=== PATIENT | male | born 1985 ===

== ENCOUNTER 2022-02-01 12:29 | Emergency (ER) | payer MEDICAID, SELFPAY ==
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
[2022-02-01 12:44] VITALS: BP 142/86; PULSE 85; O2SAT 99
[2022-02-01 12:45] VITALS: BP 113/76; PULSE 57; RESP 16; TEMP 36.7; O2SAT 98; BMI 19.5
[2022-02-01 12:48] VITALS: PULSE 58; RESP 16; O2SAT 99
[2022-02-01] MEDS: Ketorolac Tromethamine 15 MG/ML VIAL IM (12:51)
[2022-02-01] MEDS: Cyclobenzaprine HCl 5 MG TABLET PO (12:51)
--- NOTE | 2022-02-01 13:21 | PC.NURSE ---
PT AWAKE, ALERT AND ORIENTED X 3. SKIN WARM AND DRY RESP UNLABORED. DENIES N/V COLLAR REMOVED BY PROVIDER. NEUROS INTACT. NO ACUTE DISTRESS REPORTS SOME IMPROVEMENT SINCE MEDICATION PLAN IS FOR DC HOME, PT AGREEABLE.
== END 2022-02-01 13:23 | disposition home or self-care (01) ==
PROVIDERS: Emergency Provider Emergency Medicine
DX: S13.4XXA Sprain of ligaments of cervical spine, initial encounter (principal); V43.52XA Car driver injured in collision with other type car in traffic accident, initial encounter; F17.200 Nicotine dependence, unspecified, uncomplicated; F12.90 Cannabis use, unspecified, uncomplicated; Y93.89 Activity, other specified; Y92.414 Local residential or business street as the place of occurrence of the external cause; Y99.9 Unspecified external cause status
CPT/HCPCS: 96372; 99284; J1885

== ENCOUNTER 2023-12-13 06:36 | Emergency (ER) | payer MEDICAID, SELFPAY ==
--- NOTE | ~2023-12-13 | XR_ITS ---
EXAMINATION: XR LUMBOSACRAL SPINE CLINICAL INFORMATION: Low back pain COMPARISON: None available. TECHNIQUE: Three views of the lumbosacral spine. FINDINGS: The vertebral bodies and posterior elements are normal. There is straightening of the lumbar spine. The disc spaces are preserved and the vertebral alignment is normal with the exception of some mild narrowing at L4-L5. The paraspinal soft tissues are normal. XR/XR lumbar spine 2-3V IMPRESSION: Mild disc space narrowing L4-L5.
[2023-12-13 06:39] VITALS: BP 101/76; RESP 18; TEMP 36.6; O2SAT 98; BMI 20.5
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
[2023-12-13 10:05] VITALS: BP 148/92; PULSE 55; RESP 16; TEMP 36.2; O2SAT 100
== END 2023-12-13 10:06 | disposition home or self-care (01) ==
PROVIDERS: Emergency Provider Emergency Medicine
DX: S39.012A Strain of muscle, fascia and tendon of lower back, initial encounter (principal); X50.9XXA Other and unspecified overexertion or strenuous movements or postures, initial encounter; R05.9 Cough, unspecified; F17.200 Nicotine dependence, unspecified, uncomplicated; F12.90 Cannabis use, unspecified, uncomplicated; Y93.9 Activity, unspecified; Y92.9 Unspecified place or not applicable; Y99.9 Unspecified external cause status
CPT/HCPCS: 72100; 99282; 99283

== ENCOUNTER 2024-03-17 13:25 | Emergency (ER) | payer MEDICAID, SELFPAY ==
--- NOTE | ~2024-03-17 | XR_ITS ---
EXAMINATION: XR FINGER, RIGHT CLINICAL INFORMATION: Trauma Patient states possible previous dislocation of PIP joint of index finger of the right hand after playing softball. COMPARISON: None available. TECHNIQUE: PA views of right hand and 2 views of the right index finger. FINDINGS: There is mild soft tissue swelling of the right index finger, particularly along the dorsal soft tissues of the PIP joint. The bones are intact. No fracture. Alignment is anatomic. Joint spaces are maintained. XR/XR finger RT min 2V IMPRESSION: No acute bony abnormality. Electronically signed by: Elke Pérez MD 03/17/2024 02:59 PM EDT
[2024-03-17 14:19] VITALS: BP 116/63; PULSE 67; RESP 16; TEMP 37.1; O2SAT 98; BMI 19.7
--- NOTE | 2024-03-17 14:20 | ED.GENADULT ---
HPI - General Adult General Chief complaint: Extremity Problem Stated complaint: Broken finger R hand Time Seen by Provider: 03/17/24 15:06 Source: patient, RN notes reviewed and old records reviewed Mode of arrival: ambulatory Limitations: no limitations History of Present Illness ED Provider: Briana HPI narrative: 38-year-old male presents for evaluation of left 2nd finger pain. Patient was playing softball last night. He reports that the ball hit his right hand. He reports that the distal part of his right 2nd finger was ?pointed upwards at a weird angle. ? The patient states that he fixed this himself by pulling on it He reports increased pain today and bruising to the right 2nd finger The patient is right-hand dominant Related Data Previous Rx's ?Medication ?Instructions ?Recorded cyclobenzaprine 5 mg tablet 5 mg PO TID PRN neck pain 7 days 02/01/22 #21 tabs cyclobenzaprine 10 mg tablet 10 mg PO TID PRN muscle spasm #20 12/13/23 tabs ibuprofen 600 mg tablet 600 mg PO Q6H PRN pain #30 tabs 12/13/23 lidocaine 5 % topical patch 1 patch topical DAILY #30 ea 12/13/23 prednisone 20 mg tablet 40 mg (2 x 20 mg) PO DAILY 5 days 12/13/23 #10 tabs Allergies Allergy/AdvReac Type Severity Reaction Status Date / Time codeine [CODEINE] Allergy Unknown SWELLING,SOB, Verified 03/17/24 14:21 REDNESS Codeine Sulfate Allergy Unknown hives/SOB Verified 03/17/24 14:21 Review of Systems Constitutional: Constitutional: Denies body ache(s), Denies chills and Denies fever(s) Musculoskeletal: Musculoskeletal: Reports arthralgias, Reports joint swelling and Reports limited range of motion PMFSH Past Medical History Medical History No pertinent past medical history Social History Social History Patient Tobacco Use Status: Current everyday Tobacco user Substance Use Type: Marijuana Advance Directives: No Advance Directives Information Provided: No Physical Exam ED Vital Signs: Vital Signs - 24 hr 03/17/24 14:19 Temperature 98.7 F Pulse Rate 67 Respiratory Rate 16 Blood Pressure 116/63 Pulse Oximetry 98 Oxygen Delivery Method Room Air BMI result Body Mass Index 19.7 Const General: healthy appearing, comfortable, no acute distress, alert and awake Nutritional Appearance: well nourished Orientation/consciousness: patient oriented x3 HENMT Head: Yes normocephalic and Yes atraumatic Eyes Eyelids: Yes eyelids normal Conjunctivae: conjunctivae normal Sclerae: sclerae normal Corneas: corneas normal Pupils: Equal, round and reactive pupils present EOM: EOMs intact bilaterally Neck Neck: Yes full ROM Resp Effort & Inspection: normal respiratory effort, able to speak in complete sentences and not labored Skin General skin exam: elasticity normal Neuro General: patient oriented x3 Cranial nerves: Yes Equal, round and reactive pupils present and Yes Bilaterally intact EOM present Cognition (Neuro): normal cognition Extrem Other: Patient has ecchymosis, to the distal right 2nd finger at the D IP joint. This area is tender to palpation. The finger appears to be in the proper anatomic location Course Course Course Narrative: RME, this is a rapid medical exam performed by Haris Warren please refer to primary provider for complete H&P- 38-year-old male presents for evaluation of right 2nd finger injury. The patient was playing softball last night when he got hit by the ball. He reports the finger was at an awkward angle, so he straightened it out himself last night. He complains of pain to the distal finger. Plan for x-ray Medical Decision Making Medical Decision Making [facility] Narrative: 38-year-old male presents for evaluation of an injury to the right 2nd finger. X-ray shows no obvious fracture. It is likely that he dislocated the finger and reduced it himself last night. He has trouble with flexion of the D IP joint. There is a possible tendon injury. The patient placed in a finger splint and will follow up with orthopedics/hand surgery Differential Diagnosis Differential Diagnoses: The differential diagnosis associated with the presentation includes Finger fracture Finger dislocation Tendon injury Contusion Finger sprain Independent Interpretation I performed an independent interpretation of an: Plain X-Ray Interpretation: Agree with Radiology interpretation, no obvious fracture of the right 2nd finger Radiology Impression Discussion of test interpretation with radiology: I have reviewed the radiologist's reading. Radiologist Impression: FINDINGS: There is mild soft tissue swelling of the right index finger, particularly along the dorsal soft tissues of the PIP joint. The bones are intact. No fracture. Alignment is anatomic. Joint spaces are maintained. XR/XR finger RT min 2V IMPRESSION: No acute bony abnormality. Discharge Plan Discharge Clinical Impression: Pain in finger of right hand Patient Disposition: Home, Self-Care Instructions: Finger Dislocation (ED) Additional Instructions: Your x-ray does not show any fractures. It is likely that you dislocated the finger and reduced it yourself It is also possible that you injured a tendon on the palmar side of your finger. Keep the finger splint on. Follow-up with Orthopedics, Dr. Salas at the number provided You may use ibuprofen or Tylenol for pain Prescriptions: No Action cyclobenzaprine 5 mg tablet 5 mg PO TID PRN (Reason: neck pain) 7 Days Qty: 21 0RF cyclobenzaprine 10 mg tablet 10 mg PO TID PRN (Reason: muscle spasm) Qty: 20 0RF prednisone 20 mg tablet 40 mg PO DAILY 5 Days Qty: 10 0RF lidocaine 5 % adhesive patch,medicated 1 patch topical DAILY Qty: 30 0RF Rx Instructions: leave on most painful area for up to 12 hrs ibuprofen 600 mg tablet 600 mg PO Q6H PRN (Reason: pain) Qty: 30 0RF Referrals: Aimee Salas MD [Physician] - (right 2nd finger injury. ? flexor tendon injury) Print Language: Filipino
[2024-03-17 15:41] VITALS: BP 116/63; PULSE 67; RESP 16; TEMP 37.1; O2SAT 98
== END 2024-03-17 15:41 | disposition home or self-care (01) ==
PROVIDERS: Emergency Provider Emergency Medicine
DX: M79.644 Pain in right finger(s) (principal)
CPT/HCPCS: 29130; 73140; 99282; 99283

== ENCOUNTER 2024-03-19 11:28 | Outpatient (AMB) | payer MEDICAID, SELFPAY ==
[2024-03-19 11:30] VITALS: BMI 19.7
--- NOTE | 2024-03-19 11:30 | A.OFFVIS_ITS ---
Vital Signs 03/19/24 11:30 Height 5 ft 9 in Weight 133 lb 9 oz BMI 19.7 Intake Visit Reasons: [employer]- ED f/u right 2nd finger injury DOI 03/16/24 Intake Note: Ayo is a 38 year old right hand dominant male who presents today after presenting to the ED on 03/17/24. Patient sustained an injury to the right index finger, DOI 03/16/24, while playing baseball. Patient was placed on a finger splint. Patient reports tingling to the touch at the tip of the right index finger. Patient states he put his DIP joint back in place once he noticed it, sometime after the injury occured. Denies any prior injuries or surgeries to the right hand. Allergies codeine [CODEINE] Allergy (Unknown, Verified 03/19/24 11:51) SWELLING,SOB, REDNESS Codeine Sulfate Allergy (Unknown, Verified 03/19/24 11:51) hives/SOB HPI HPI [employer]- ED f/u right 2nd finger injury DOI 03/16/24: Details: Ayo is a 38 year old right hand dominant man who presents for a right index finger injury, DOI: 03/16/24 while playing Softball. He says his finger was hit by the ball and the tip was pointed at a weird angle. He straightened his finger out manually when on he field and continued to play. He was seen in the ED on 03/17/24 for finger pain & bruising, and was placed in a finger splint. He presents today with some mild complaints of pain. He reports some tingling to the tip of his finger, which began following the injury. 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 Review of Systems Const All systems reviewed & are unremarkable except as noted in HPI and below Physical Exam Vital Signs: BMI result Body Mass Index 19.7 Const General: cooperative, healthy appearing and no acute distress Orientation/consciousness: patient oriented x3 HEENT Head: Yes normocephalic and Yes atraumatic Eyes EOM: EOMs intact bilaterally Resp Effort & Inspection: normal respiratory effort and able to speak in complete sentences Cardio Jugular venous distension: no JVD Skin General skin exam: turgor normal Rashes: no rashes Neuro General: patient oriented x3 Extrem Other: Evaluation of Right Upper Extremity: The patient is alert, oriented, and in no acute distress Neuro: Median, Ulnar, Radial nerves motor and sensory intact and sensation is normal to the tips of all digits Vascular: Cap refill brisk ROM: Initially he had some stiffness in his index finger MCP & PIP joint, due to his volar splint. We worked on ROM exercises today in clinic. Before leaving clinic he could bring his fingers closed to a fist and back into full extension His index finger DIP joint can actively flex from full extension to ~45 degrees Skin: No lacerations or abrasions. General: No Erythema or evidence of infection. Ecchymosis & swelling about the index finger, particularly the DIP joint Radiographs: 3 views of the right hand, with attention to the index finger, from 03/17/24 were reviewed by me today in clinic. They show no fractures or dislocations, index finger joints all concentrically aligned Psych Appearance: grossly normal Affect: normal affect Attitude: cooperative Assessment & Plan Assessment & Plan (1) Dislocation of interphalangeal joint of right index finger: Code(s): S63.270A - Dislocation of unspecified interphalangeal joint of right index finger, initial encounter Category: Medical Plan Assessment & Plan: 1. Right index finger DIP joint dislocation, S/P reduction by patient DOI: 03/16/24 Reduced by patient 03/16/24 I educated him about this condition He is doing well, with satisfactory reduction and some pain at the DIP joint He was fitted for a finger splint which allows for PIP joint ROM He will work on finger ROM exercises at home He should avoid any impact activities for the next few weeks He was given a note for work to return to normal duties, with limited use of his right index finger for the next 4 weeks He can follow up in 5 weeks to see how he is doing. He may cancel this if he is doing well Scribed for Aimee Salas MD by Joel Alba medical office scheduler, on 03/19/24 at 12:05 PM, EST. Medications: Discontinued cyclobenzaprine Discontinued Reason: Patient no longer taking 5 mg PO TID 7 days PRN 21 tabs 0RF neck pain cyclobenzaprine Discontinued Reason: Patient no longer taking 10 mg PO TID PRN 20 tabs 0RF muscle spasm lidocaine 5% leave on most painful area for up to 12 hrs Discontinued Reason: Patient no longer taking 1 patch topical DAILY 30 ea 0RF ibuprofen Discontinued Reason: Patient no longer taking 600 mg PO Q6H PRN 30 tabs 0RF pain prednisone Discontinued Reason: Patient no longer taking 40 mg (2 x 20 mg) PO DAILY 5 days 10 tabs 0RF Coding Level of Care Code New Pt Level 3 (75118) Diagnoses Dislocation of interphalangeal joint of right index finger S63.270A
== END 2024-03-19 12:31 | disposition home or self-care (01) ==
PROVIDERS: Visit Provider Orthopaedic Surgery
DX: S63.270A Dislocation of unspecified interphalangeal joint of right index finger, initial encounter (principal)
CPT/HCPCS: 99203

== ENCOUNTER → 2024-03-19 11:28 | Outpatient (BNVA) | payer MEDICAID, SELFPAY | PROVIDERS: Visit Provider Orthopaedic Surgery | DX: S63.270A Dislocation of unspecified interphalangeal joint of right index finger, initial encounter (principal) | CPT/HCPCS: 99202 ==

== ENCOUNTER 2024-04-22 12:35 | Outpatient (AMB) | payer MEDICAID, SELFPAY ==
[2024-04-22 12:45] VITALS: BMI 19.7
--- NOTE | 2024-04-22 12:45 | MHC.OFFVIS ---
Vital Signs 04/22/24 12:45 Height 5 ft 9 in Weight 133 lb 9 oz BMI 19.7 Intake Visit Reasons: OV- Right index finger injury DOI 03/16/24 Intake Note: Ayo is a 38 year old right hand dominant male who presents today for a follow up evaluation of an injury to the right index finger, DOI 03/16/24. Patient reports sporadic right index finger tingling. Denies numbness. Denies taking medication for pain. Patient is able to make a closed fist. Allergies codeine [CODEINE] Allergy (Unknown, Verified 04/22/24 12:46) SWELLING,SOB, REDNESS Codeine Sulfate Allergy (Unknown, Verified 04/22/24 12:46) hives/SOB HPI HPI OV- Right index finger injury DOI 03/16/24: Details: 38 yo male returns to the office today f/u s/p right index finger dislocation. He states he has been working on ROM and has regained full motion but he does experience some tingling. He states the tingling is intermittent and is improving with time. 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 He is able to full flex and extend the digit without limitations There is some numbness along the distal end of the digit cap refill brisk Assessment & Plan Assessment & Plan (1) Dislocation of interphalangeal joint of right index finger: Code(s): S63.270A - Dislocation of unspecified interphalangeal joint of right index finger, initial encounter Category: Medical Plan: He will continue ROM to tolerance Increase activity as tolerated Continue with desensitization techniques F/u as needed Coding Level of Care Code Est Pt Level 3 (85717) Complex EM visit Add On G2211 Diagnoses Dislocation of interphalangeal joint of right index finger S63.270L
== END 2024-04-22 12:52 | disposition home or self-care (01) ==
PROVIDERS: Visit Provider Physician Assistant
DX: S63.270A Dislocation of unspecified interphalangeal joint of right index finger, initial encounter (principal)
CPT/HCPCS: 99213; G2211

== ENCOUNTER → 2024-04-22 12:35 | Outpatient (BNVA) | payer MEDICAID, SELFPAY | PROVIDERS: Visit Provider Orthopaedic Surgery | DX: S63.290A Dislocation of distal interphalangeal joint of right index finger, initial encounter (principal); X58.XXXA Exposure to other specified factors, initial encounter; Y93.9 Activity, unspecified; Y92.9 Unspecified place or not applicable; Y99.9 Unspecified external cause status | CPT/HCPCS: 99212 ==

== ENCOUNTER → 2024-08-19 08:23 | Outpatient (BNVA) | payer OTHER, SELFPAY | PROVIDERS: Visit Provider Registered Nurse | DX: S61.214A Laceration without foreign body of right ring finger without damage to nail, initial encounter (principal); W27.8XXA Contact with other nonpowered hand tool, initial encounter; Z23 Encounter for immunization | CPT/HCPCS: 12001; 90715; 99203 ==

== ENCOUNTER → 2024-08-21 08:57 | Outpatient (BNVA) | payer OTHER, SELFPAY | PROVIDERS: Visit Provider Physician Assistant Medical | DX: S61.214A Laceration without foreign body of right ring finger without damage to nail, initial encounter (principal); W27.8XXA Contact with other nonpowered hand tool, initial encounter | CPT/HCPCS: 99213 ==

== ENCOUNTER → 2024-08-29 13:44 | Outpatient (BNVA) | payer OTHER, SELFPAY | PROVIDERS: Visit Provider Physician Assistant Medical | DX: Z48.02 Encounter for removal of sutures (principal); S61.214A Laceration without foreign body of right ring finger without damage to nail, initial encounter; W27.8XXA Contact with other nonpowered hand tool, initial encounter | CPT/HCPCS: 99212; 99213 ==

== ENCOUNTER → 2024-10-16 10:00 | Outpatient (BNVA) | payer OTHER, SELFPAY | PROVIDERS: Visit Provider Physician Assistant Medical | DX: M79.644 Pain in right finger(s) (principal); Z02.79 Encounter for issue of other medical certificate | CPT/HCPCS: 99213 ==